=== PATIENT | female | born 1950 | race Caucasian/White ===

== ENCOUNTER 2018-03-15 13:58 | Emergency (ER) | payer MEDICARE ==
[~2018-03-15 13:58] MED LIST: ALL220TA PO; CHOL4 PO; LACT PO; METR-1 PO; OMEG100037; PARO10TA PO
[2018-03-15 14:03] VITALS: BP 149/75; PULSE 64; RESP 16; TEMP 97.4; O2SAT 97
[2018-03-15 14:20] VITALS: BP 137/72; PULSE 69; RESP 18; O2SAT 98
[2018-03-15] MEDS ORDERED: FLOR250C PO (14:33)
[2018-03-15] MEDS ORDERED: PAXI10TA8 PO (14:33)
--- NOTE | 2018-03-15 14:44 | PD ---
HPI Chief Complaint: Dizziness Time Seen by Provider: 14:21 Travel History International Travel<30 days: No Contact w/Intl Traveler<30days: No Traveled to known affect area: No History of Present Illness HPI 67-year-old female complains of headache, dizziness, nausea vomiting and clicking noise in the ears. Patient states that symptoms started this morning. Patient states that the dizziness is worse with head movement. Patient states that she has moderate headache left frontal head. Patient denies any visual change. Patient denies any neck pain. Patient denies any chest pain or shortness of breath. Patient denies abdominal pain. Patient denies any focal weakness or numbness of the extremity. Patient denies any fever chills. Patient denies any back pain. PFSH Past Medical History Arthritis: Yes Autoimmune Disease: No Anxiety: Yes Depression: Yes Cancer: No Cardiovascular Problems: Yes (heart murmur) Diminished Hearing: No Endocrine: No Gastrointestinal Disorders: Yes GERD: Yes Genitourinary: Yes Musculoskeletal: Yes Neurologic: No Reproductive: No Respiratory: No Immunizations Current: Yes Tetanus Vaccination: < 5 Years Influenza Vaccination: No ?: Not Menopausal: Yes Past Surgical History Abdominal Surgery: No Cardiac Surgery: No Section: Yes Genitourinary Surgery: Yes (lithotripsy) Gynecologic Surgery: Yes (c section x2) Thoracic Surgery: No Social History Alcohol Use: Yes (2 DRINKS PER WEEK) Tobacco Use: No Substance Use: No Allergies-Medications (Allergen,Severity, Reaction): Coded Allergies: penicillin G (Verified Allergy, Intermediate, HIVES, 03/15/18) Reported Meds & Prescriptions Reported Meds & Active Scripts Active Reported Florastor (Saccharomyces Boulardii) 250 Mg Cap 250 Mg PO DAILY Paxil (Paroxetine HCl) 10 Mg Tab 20 Mg PO DAILY Review of Systems General / Constitutional: No: Fever Eyes: No: Visual changes HENT: Positive: Lightheadedness, No: Headaches Cardiovascular: No: Chest Pain or Discomfort Respiratory: No: Shortness of Breath Gastrointestinal: Positive: Nausea, Vomiting, No: Abdominal Pain Genitourinary: No: Dysuria Musculoskeletal: No: Pain Skin: No Rash Neurologic: No: Weakness Psychiatric: No: Depression Endocrine: No: Polydipsia Hematologic/Lymphatic: No: Easy Bruising Physical Exam Narrative GENERAL: Well-nourished, well-developed patient. SKIN: Focused skin assessment warm/dry. HEAD: Normocephalic. EYES: No scleral icterus. No injection or drainage. Pupils 2 mm equal reactive. TM: Clear. Throat: Nonerythematous. NECK: Supple, trachea midline. No JVD or lymphadenopathy. No meningismus. CARDIOVASCULAR: Regular rate and rhythm without murmurs, gallops, or rubs. RESPIRATORY: Breath sounds equal bilaterally. No accessory muscle use. GASTROINTESTINAL: Abdomen soft, non-tender, nondistended. MUSCULOSKELETAL: No cyanosis, or edema. BACK: Nontender without obvious deformity. No CVA tenderness. Neurologic exam: Patient is awake and alert oriented x3. No obvious focal neurological deficit. The dizziness is reproduced by head movement, lying down or getting up. Data Data Last Documented VS Vital Signs Date Time Temp Pulse Resp B/P (MAP) Pulse Ox O2 Delivery O2 Flow Rate FiO2 03/15/18 14:53 64 20 147/63 (91) 98 03/15/18 14:20 Room Air 03/15/18 14:03 97.4 Orders Orders Ondansetron Odt (Zofran Odt) (03/15/18 14:45) Meclizine (Antivert) (03/15/18 14:45) Sodium Chlor 0.9% 1000 Ml Inj (Ns 1000 M (03/15/18 14:45) Complete Blood Count With Diff (03/15/18 14:32) Basic Metabolic Panel (Bmp) (03/15/18 14:32) Urinalysis - C+S If Indicated (03/15/18 14:32) Iv Access Insert/Monitor (03/15/18 14:32) Ecg Monitoring (03/15/18 14:32) Oximetry (03/15/18 14:32) Acetaminophen (Tylenol) (03/15/18 14:45) Labs Laboratory Tests Test 03/15/18 14:40 03/15/18 15:30 White Blood Count 5.9 TH/MM3 Red Blood Count 4.84 MIL/MM3 Hemoglobin 14.3 GM/DL Hematocrit 42.6 % Mean Corpuscular Volume 88.2 FL Mean Corpuscular Hemoglobin 29.5 PG Mean Corpuscular Hemoglobin Concent 33.4 % Red Cell Distribution Width 14.2 % Platelet Count 185 TH/MM3 Mean Platelet Volume 10.1 FL Neutrophils (%) (Auto) 77.5 % Lymphocytes (%) (Auto) 14.7 % Monocytes (%) (Auto) 5.5 % Eosinophils (%) (Auto) 0.6 % Basophils (%) (Auto) 1.7 % Neutrophils # (Auto) 4.5 TH/MM3 Lymphocytes # (Auto) 0.9 TH/MM3 Monocytes # (Auto) 0.3 TH/MM3 Eosinophils # (Auto) 0.0 TH/MM3 Basophils # (Auto) 0.1 TH/MM3 CBC Comment DIFF FINAL Differential Comment Blood Urea Nitrogen 15 MG/DL Creatinine 0.48 MG/DL Random Glucose 115 MG/DL Calcium Level 8.7 MG/DL Sodium Level 140 MEQ/L Potassium Level 3.6 MEQ/L Chloride Level 107 MEQ/L Carbon Dioxide Level 25.6 MEQ/L Anion Gap 7 MEQ/L Estimat Glomerular Filtration Rate 129 ML/MIN MDM Medical Decision Making Medical Screen Exam Complete: Yes Emergency Medical Condition: Yes Interpretation(s) 1557 PM. CBC within normal limits. BMP within normal limits. Differential Diagnosis Differential diagnosis including acute vertigo, gastroenteritis, dehydration, electrolyte imbalance, TIA, CVA. Narrative Course 67-year-old female complaining of dizziness with head movement, nausea vomiting with the dizziness. Meclizine 25 mill grams p.o. given. Zofran 4 mg ODT. Normal saline solution 1 L IV bolus. 1601 p.m. Patient states that she is feeling much better. Diagnosis Primary Impression: Acute onset of severe vertigo Patient Instructions: General Instructions Additional Instructions: Meclizine as directed for dizziness. Zofran as needed for nausea vomiting. Follow-up with personal physician and ENT. Return if worse. Med/Other Pt SpecificInfo: Prescription(s) given Scripts Ondansetron Odt (Zofran Odt) 4 Mg Tab 4 MG SL Q6HR Y for Nausea/Vomiting, #10 TAB 0 Refills Prov: Du Ely MD 03/15/18 Meclizine (Meclizine) 25 Mg Tab 25 MG PO TID Y for VERTIGO, #21 TAB 0 Refills Prov: Du Ely MD 03/15/18 Disposition: 01 DISCHARGE HOME Condition: Stable Du Ely MD Mar 15, 2018 14:44
[2018-03-15] MEDS ORDERED: ONDANSETRON ODT 4 MG TAB PO ONE (14:45)
[2018-03-15] MEDS ORDERED: SODIUM CHLOR 0.9% 1000 ML INJ 1,000 ML IV ONE (14:45)
[2018-03-15] MEDS ORDERED: MECLIZINE HCL 25 MG TAB PO ONE (14:45)
[2018-03-15] MEDS ORDERED: ACETAMINOPHEN 325 MG TAB PO ONE (14:45)
[2018-03-15 14:48] VITALS: O2SAT 98
[2018-03-15 14:51] LABS: AUTOMATED NEUTROPHIL # 4.5 TH/MM3 (1.8-7.7); BASOPHIL # 0.1 TH/MM3 (0-0.2); BASOPHIL % 1.7 % (0.0-2.0); EOSINOPHIL % 0.6 % (0.0-4.0); HEMATOCRIT 42.6 % (35.0-46.0); HEMOGLOBIN 14.3 GM/DL (11.6-15.3); LYMPH % 14.7 % (9.0-44.0); LYMPHOCYTE # 0.9 TH/MM3 (1.0-4.8); MEAN CELL VOLUME 88.2 FL (80.0-100.0); MEAN CORPUSCULAR HEMOGLOBIN 29.5 PG (27.0-34.0); MEAN CORPUSCULAR HGB CONC 33.4 % (32.0-36.0); MEAN PLATELET VOLUME 10.1 FL (7.0-11.0); MONO % 5.5 % (0.0-8.0); MONOCYTE # 0.3 TH/MM3 (0-0.9); NEUT % 77.5 % (16.0-70.0); PLATELET COUNT 185 TH/MM3 (150-450); RED BLOOD COUNT 4.84 MIL/MM3 (4.00-5.30); RED CELL DISTRIBUTION WIDTH 14.2 % (11.6-17.2); WHITE BLOOD COUNT 5.9 TH/MM3 (4.0-11.0)
[2018-03-15 14:53] VITALS: BP 147/63; PULSE 64; RESP 20; O2SAT 98
[2018-03-15 15:46] LABS: BILIRUBIN, URINE NEG (NEG); BLOOD, URINE NEG (NEG); GLUCOSE,URINE NEG (NEG); KETONE, URINE NEG (NEG); NITRITE,URINE NEG (NEG); PH, URINE 5.5 (5.0-8.5); URINE LEUKOCYTE ESTERASE SMALL (NEG)
[2018-03-15 15:50] LABS: CALCIUM 8.7 MG/DL (8.5-10.1)
[2018-03-15 15:51] LABS: BICARBONATE 25.6 MEQ/L (21.0-32.0)
[2018-03-15 15:54] LABS: CREATININE 0.48 MG/DL (0.50-1.00)
[2018-03-15] MEDS ORDERED: ZOFR4TAB3 SL (16:06)
[2018-03-15] MEDS ORDERED: MECL-62 PO (16:06)
[2018-03-15 16:41] LABS: URINE COLOR STRAW (YELLW/STRAW)
[2018-03-15 16:42] LABS: RBC, URINE 0-3 /hpf (0-3); SQUAMOUS EPITHELIAL CELL URINE 0-5 /hpf (0-5); WBC, URINE 0-2 /hpf (0-5)
== END 2018-03-15 16:37 | disposition home or self-care (01) ==
LOC: PHED 13:58
DX: R42 Dizziness and giddiness (principal); R51 Headache; R11.2 Nausea with vomiting, unspecified; F41.9 Anxiety disorder, unspecified; F32.9 Major depressive disorder, single episode, unspecified; K21.9 Gastro-esophageal reflux disease without esophagitis; Z79.899 Other long term (current) drug therapy
CPT/HCPCS: 80048; 81001; 85025; 96360; 96361; 99284; J7030